=== PATIENT | male | born 1995 | race Asian ===

== ENCOUNTER 2020-04-08 09:58 | Emergency (ER) | payer OTHER ==
[~2020-04-08] VITALS: Ht 177.8 cm; Wt 65.8 kg
[2020-04-08 10:14] VITALS: TEMP 99.1
[2020-04-08 11:48] VITALS: BP 115/60
== END 2020-04-08 11:48 | disposition home or self-care (01) ==
LOC: ED 09:58
DX: Z20.2 Contact with and (suspected) exposure to infections with a predominantly sexual mode of transmission (principal)
CPT/HCPCS: 86592; 96372; 99282; J0561

== ENCOUNTER 2020-07-27 06:35 | Emergency (ER) | payer OTHER ==
[~2020-07-27] VITALS: Ht 177.8 cm; Wt 68.0 kg
[2020-07-27 06:35] VITALS: TEMP 98
[2020-07-27 07:21] VITALS: BP 120/60
== END 2020-07-27 07:21 | disposition home or self-care (01) ==
LOC: ED 06:35
DX: S29.011A Strain of muscle and tendon of front wall of thorax, initial encounter (principal); X50.0XXA Overexertion from strenuous movement or load, initial encounter; Y92.89 Other specified places as the place of occurrence of the external cause
CPT/HCPCS: 99282; 99284